=== PATIENT | female | born 1970 | race Caucasian/White ===

== ENCOUNTER 2017-05-05 11:44 | Emergency (ER) | payer OTHER | END 2017-05-05 12:10 | disposition home or self-care (01) | LOC: NAV ERS 11:44 | DX: K04.7 Periapical abscess without sinus (principal); K02.9 Dental caries, unspecified; K03.81 Cracked tooth; I10 Essential (primary) hypertension; F32.9 Major depressive disorder, single episode, unspecified; F17.210 Nicotine dependence, cigarettes, uncomplicated; Z79.899 Other long term (current) drug therapy; Z79.1 Long term (current) use of non-steroidal anti-inflammatories (NSAID) | CPT/HCPCS: 99282 ==

== ENCOUNTER 2017-06-06 15:53 | Emergency (ER) | payer BC, OTHER | END 2017-06-06 16:35 | disposition home or self-care (01) | LOC: NAV ERS 15:53 | DX: K08.89 Other specified disorders of teeth and supporting structures (principal); F32.9 Major depressive disorder, single episode, unspecified; F17.210 Nicotine dependence, cigarettes, uncomplicated; I10 Essential (primary) hypertension | CPT/HCPCS: 99282 ==

== ENCOUNTER 2019-11-29 10:51 | Emergency (ER) | payer BC ==
[2019-11-29] MEDS ORDERED: HYDROcodone/Acetaminophen 5/325 mg Tablet ONE (11:18)
[2019-11-29] MEDS ORDERED: Ketorolac Tromethamine 60 MG/2 ML VIAL ONE (11:18)
[2019-11-29] MEDS ORDERED: Dexamethasone 4 mg/ml Vial ONE (11:18)
== END 2019-11-29 12:03 | disposition home or self-care (01) ==
LOC: NAV ERS 10:51
DX: M25.562 Pain in left knee (principal); M25.561 Pain in right knee; G89.29 Other chronic pain; F43.0 Acute stress reaction; I10 Essential (primary) hypertension; F32.9 Major depressive disorder, single episode, unspecified; F17.210 Nicotine dependence, cigarettes, uncomplicated; Z79.899 Other long term (current) drug therapy
CPT/HCPCS: 96372; 99283; J1100; J1885

== ENCOUNTER 2019-12-24 10:53 | Outpatient (CLI) | payer BC ==
--- NOTE | 2019-12-24 11:31 | RAD ---
RIGHT KNEE 4 VIEWS: Date: 12/24/2019 INDICATION: History of right knee pain. COMPARISON: None. 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 There are prominent interarticular bodies within the lateral aspect of the suprapatel lar pouch measuring 3.2 and 3.3 cm, respectively. There is mild joint capsular distention. There is m oderate osteoarthrosis of the right knee with prominent marginal osteophytes affecting the major comp artments of the right knee, most severely at the patellofemoral compartment. IMPRESSION: Moderate osteoarthrosis of the right knee with interarticular bodies. POS: BH
== END 2019-12-24 10:54 | disposition home or self-care (01) ==
LOC: NAV RAD 10:53
PROVIDERS: ATTEND Family Medicine
DX: M25.561 Pain in right knee (principal); M17.11 Unilateral primary osteoarthritis, right knee

== ENCOUNTER 2022-04-04 14:41 | Outpatient (CLI) | payer BC | END 2022-04-04 14:42 | disposition home or self-care (01) | LOC: NAV RAD 14:41 | PROVIDERS: ATTEND Family Medicine | DX: R10.11 Right upper quadrant pain (principal) | CPT/HCPCS: 74018 ==

== ENCOUNTER 2022-05-21 16:02 | Emergency (ER) | payer BC ==
[2022-05-21] MEDS ORDERED: predniSONE 20 MG TAB ONE (16:24)
== END 2022-05-21 16:31 | disposition home or self-care (01) ==
LOC: NAV ERS 16:02
DX: R21 Rash and other nonspecific skin eruption (principal); I10 Essential (primary) hypertension; F17.210 Nicotine dependence, cigarettes, uncomplicated; Z79.899 Other long term (current) drug therapy
CPT/HCPCS: 99282; J7512